=== PATIENT | female | born 1955 | race Two or more races ===

== ENCOUNTER 2020-08-08 16:18 | Emergency (ER) | payer OTHER ==
[~2020-08-08] VITALS: Ht 152.4 cm; Wt 2.3 kg
[2020-08-08 16:30] VITALS: BP 115/54
== END 2020-08-08 21:31 | disposition home or self-care (01) ==
LOC: ER 16:24
DX: S00.83XA Contusion of other part of head, initial encounter (principal); R51.9 Headache, unspecified; Z98.890 Other specified postprocedural states; W22.8XXA Striking against or struck by other objects, initial encounter; Y93.89 Activity, other specified; Y92.89 Other specified places as the place of occurrence of the external cause; Y99.8 Other external cause status
CPT/HCPCS: 70450